=== PATIENT | male | born 1960 | race Caucasian/White ===

== ENCOUNTER 2017-01-24 14:09 | Emergency (ER) | payer OTHER ==
[~2017-01-24] VITALS: Ht 172.7 cm; Wt 108.0 kg
[~2017-01-24 14:09] MED LIST: ECOT81TA2 PO; LOSA50TA PO; VITA20002 PO
[2017-01-24 14:11] VITALS: BP 155/89; PULSE 75; RESP 16; TEMP 98.2; O2SAT 96
[2017-01-24] MEDS ORDERED: HYDR25TA5 PO (14:28)
[2017-01-24] MEDS ORDERED: ROBA750T PO (14:50)
[2017-01-24] MEDS ORDERED: IBUP800T23 PO (14:50)
--- NOTE | 2017-01-24 14:50 | PD ---
HPI Chief Complaint: Back/ Neck Pain or Injury Time Seen by Provider: 14:25 Travel History International Travel<30 days: No Contact w/Intl Traveler<30days: No Traveled to known affect area: No History of Present Illness HPI 56-year-old male with significant past medical history of hypertension presents to emergency department with chief complaint low back pain. He reports that at 12:00 this afternoon while at work he was bending down fasting a wheelchair onto the [employer] bus and felt a sharp pain in his low back upon standing. He describes the pain as sharp, spasming, worse with movement generalized to the low back. Severity 7 out of 10 with movement. Reports no pain while remaining still. He denies difficulty walking, incontinence, numbness or weakness in the lower extremities, saddle paresthesia. PFSH Past Medical History Narrative Medical Hypertension Diminished Hearing: No Hypertension: Yes Tetanus Vaccination: Unknown Social History Alcohol Use: Yes (RARELY) Tobacco Use: No Substance Use: No Allergies-Medications (Allergen,Severity, Reaction): Coded Allergies: Losartan (Verified Allergy, Severe, 01/24/17) Lisinopril (Verified Allergy, Intermediate, COUGH, DRY THROAT, 01/24/17) Norvasc (Verified Allergy, Unknown, 01/24/17) Reported Meds & Prescriptions Reported Meds & Active Scripts Active Robaxin (Methocarbamol) 750 Mg Tab 750 Mg PO TID Ibuprofen 800 Mg Tab 800 Mg PO Q8H PRN Reported Hydrochlorothiazide 25 Mg Tab 25 Mg PO DAILY Review of Systems Except as stated in HPI: all other systems reviewed are Neg Physical Exam Narrative GENERAL: [Alert, well-nourished, male. Appears uncomfortable with movement] SKIN: Focused skin assessment warm/dry. HEAD: Atraumatic. Normocephalic. EYES: Pupils equal and round. No scleral icterus. No injection or drainage. ENT: No nasal bleeding or discharge. Mucous membranes pink and moist. NECK: Trachea midline. No JVD. CARDIOVASCULAR: Regular rate and rhythm. No murmur appreciated. RESPIRATORY: No accessory muscle use. Clear to auscultation. Breath sounds equal bilaterally. GASTROINTESTINAL: Abdomen soft, non-tender, nondistended. Hepatic and splenic margins not palpable. MUSCULOSKELETAL: No midline spine tenderness. Tenderness over paraspinous muscle lumbar region. 2+ DTRs in lower extremities. Dorsi and plantar flexion intact. 5 out of 5 strength in lower extremities. Normal motor and sensation in lower extremities. No obvious deformities. No clubbing. No cyanosis. No edema. NEUROLOGICAL: Awake and alert. No obvious cranial nerve deficits. Motor grossly within normal limits. Normal speech. PSYCHIATRIC: Appropriate mood and affect; insight and judgment normal. Data Data Last Documented VS Vital Signs Date Time Temp Pulse Resp B/P Pulse Ox O2 Delivery O2 Flow Rate FiO2 01/24/17 14:11 98.2 75 16 155/89 96 MDM Medical Decision Making Medical Screen Exam Complete: Yes Emergency Medical Condition: Yes Medical Record Reviewed: Yes Differential Diagnosis Lumbar strain, lumbar fracture, herniated disc Narrative Course 56-year-old male presents to the emergency department with generalized low back pain and muscle spasming after bending over while at work today. He denies difficulty ambulating, incontinence, numbness or weakness in lower extremities, saddle paresthesia. On exam patient has no midline spine tenderness he does have paraspinous muscle tenderness in lumbar region. 2+ DTRs in lower extremities, dorsi and plantar flexion intact, 5 out of 5 strength in lower extremities. Physical exam is consistent with a lumbar strain. Patient will be given a shot of Toradol in the ED and discharged with NSAIDs and muscle relaxers. Instructed to follow-up with his primary care provider in 2 days for recheck. Return to emergency department should he develop new or worsening symptoms. Diagnosis Primary Impression: Lumbar strain Qualified Code: S39.012A - Lumbar strain, initial encounter Additional Impression: Low back pain Qualified Code: M54.5 - Acute low back pain without sciatica, unspecified back pain laterality Referrals: Primary Care Physician Patient Instructions: General Instructions, Low Back Strain (ED) Scripts Methocarbamol (Robaxin)750 Mg [id number] Mg PO TID #12 TAB Ref 0 Prov:Chuyita Jenkins 01/24/17 Ibuprofen 800 Mg [id number] Mg PO Q8H PRN (Pain/Inflammation) #20 TAB Ref 0 Prov:Chuyita Jenkins 01/24/17 Disposition: 01 DISCHARGE HOME Condition: Stable Chuyita Jenkins January 24, 2017 14:50
[2017-01-24] MEDS ORDERED: KETOROLAC TROMETHAMINE 60 MG/2 ML (IM) VIAL IM ONE (15:00)
== END 2017-01-24 15:10 | disposition home or self-care (01) ==
LOC: PHEFT 14:09
DX: S39.012A Strain of muscle, fascia and tendon of lower back, initial encounter (principal); M62.830 Muscle spasm of back; I10 Essential (primary) hypertension; X50.1XXA Overexertion from prolonged static or awkward postures, initial encounter; Y93.89 Activity, other specified; Y92.811 Bus as the place of occurrence of the external cause; Y99.0 Civilian activity done for income or pay
CPT/HCPCS: 96372; 99284; J1885

== ENCOUNTER 2017-01-28 09:37 | Emergency (ER) | payer OTHER ==
[~2017-01-28] VITALS: Ht 172.7 cm; Wt 106.6 kg
[~2017-01-28 09:37] MED LIST changes: -ECOT81TA2 PO; +HYDR25TA5 PO; +IBUP800T23 PO; -LOSA50TA PO; +ROBA750T PO; -VITA20002 PO
[2017-01-28 09:49] VITALS: BP 138/88; PULSE 73; RESP 16; TEMP 98.2; O2SAT 99
--- NOTE | 2017-01-28 11:10 | PD ---
HPI Chief Complaint: Musculoskeletal Complaint Time Seen by Provider: 11:05 Travel History International Travel<30 days: No Contact w/Intl Traveler<30days: No Traveled to known affect area: No History of Present Illness HPI 56 year-old male presents to the emergency room for evaluation of low back strain. Patient pulled his back 4 days ago while working. He came to the emergency room for evaluation and was diagnosed with muscle strain. Patient was released to come back to work today but states he is still in too much pain. He came back to the emergency room for follow-up. While in the emergency room, he called his supervisor [employer] and was told that he is in the wrong location. He has received the extension to call his job for follow-up care. History Past Medical Histgory Medical History: Denies Significant Hx Past Surgical History Surgical History: No Previous Surgery Social History Alcohol Use: Yes (RARELY) Tobacco Use: No Allergies-Medications (Allergen,Severity, Reaction): Coded Allergies: Losartan (Verified Allergy, Severe, 01/28/17) Lisinopril (Verified Allergy, Intermediate, COUGH, DRY THROAT, 01/28/17) Norvasc (Verified Allergy, Unknown, 01/28/17) Reported Meds & Prescriptions Reported Meds & Active Scripts Active Robaxin (Methocarbamol) 750 Mg Tab 750 Mg PO TID Ibuprofen 800 Mg Tab 800 Mg PO Q8H PRN Reported Hydrochlorothiazide 25 Mg Tab 25 Mg PO DAILY Review of Systems Except as stated in HPI: all other systems reviewed are Neg Physical Exam Narrative GENERAL: Well-nourished, well-developed male in no acute distress. Afebrile. Ambulatory. SKIN: Focused skin assessment warm/dry. HEAD: Normocephalic. EYES: No scleral icterus. No injection or drainage. NECK: Supple, trachea midline. No JVD or lymphadenopathy. CARDIOVASCULAR: Regular rate and rhythm without murmurs, gallops, or rubs. RESPIRATORY: Breath sounds equal bilaterally. No accessory muscle use. BACK: No CVA tenderness. No rash. No point tenderness on palpation of the spine. Tenderness palpation of the lumbar paraspinous musculature. Data Data Last Documented VS Vital Signs Date Time Temp Pulse Resp B/P Pulse Ox O2 Delivery O2 Flow Rate FiO2 01/28/17 09:49 98.2 73 16 138/88 99 MDM Medical Screen Exam Complete: Yes Emergency Medical Condition: No Differential Diagnosis Lumbar strain Narrative Course 56-year-old male presents to the emergency room for follow-up after being diagnosed with lumbar strain 4 days ago. He is ambulatory. No focal neurological deficits. Tenderness to palpation of the bilateral lumbar paraspinous musculature. Patient was injured on the job and accidentally came back to the emergency room for follow-up care but states he meant to follow-up with the physician provided by his work. While in the emergency room he got the extension for proper follow-up care and states he would like to leave. There are no urgent or emergent medical conditions at this time. A medical screening exam was performed: At the time of evaluation the presenting medical condition was determined not to be of an emergent nature. The patient was given the option of receiving additional care, but declined. Patient was given options for additional community resources from which to obtain care. The Patient Has Been advised to seek medical attention for their presenting complaint. The patient has been advised to return to the ER at any time if an emergent condition develops. Primary Impression: Encounter for medical screening examination Disposition: 01 DISCHARGE HOME Condition: Stable Angeli Mccallum January 28, 2017 11:09
== END 2017-01-28 11:10 | disposition left against medical advice (07) ==
LOC: PHED 09:37 → PHEFT 11:10
DX: S39.012A Strain of muscle, fascia and tendon of lower back, initial encounter (principal); X50.9XXA Other and unspecified overexertion or strenuous movements or postures, initial encounter
CPT/HCPCS: 99281

== ENCOUNTER 2017-02-22 09:52 | Observation (INO) | payer OTHER ==
[~2017-02-22] VITALS: Ht 172.7 cm; Wt 102.1 kg
[2017-02-22 09:55] VITALS: BP 159/88; PULSE 72; RESP 17; TEMP 98.7; O2SAT 97
[2017-02-22] MEDS ORDERED: ASPIRIN 325 MG TAB PO ONE (10:15)
[2017-02-22] MEDS ORDERED: SODIUM CHLORIDE 0.9% FLUSH 10 ML FLUSH IVF PRN (10:15)
[2017-02-22 10:32] LABS: AUTOMATED NEUTROPHIL # 6.7 TH/MM3 (1.8-7.7); BASOPHIL # 0.1 TH/MM3 (0-0.2); BASOPHIL % 0.6 % (0.0-2.0); EOSINOPHIL # 0.1 TH/MM3 (0-0.4); EOSINOPHIL % 0.7 % (0.0-4.0); HEMATOCRIT 46.6 % (39.0-51.0); HEMO FLAGS DIFF FINAL; LYMPH % 22.5 % (9.0-44.0); LYMPHOCYTE # 2.1 TH/MM3 (1.0-4.8); MEAN CELL VOLUME 78.2 FL (80.0-100.0); MEAN CORPUSCULAR HEMOGLOBIN 25.4 PG (27.0-34.0); MEAN CORPUSCULAR HGB CONC 32.4 % (32.0-36.0); MONO % 6.2 % (0.0-8.0); PLATELET COUNT 241 TH/MM3 (150-450); RED BLOOD COUNT 5.96 MIL/MM3 (4.50-5.90); RED CELL DISTRIBUTION WIDTH 13.4 % (11.6-17.2); WHITE BLOOD COUNT 9.6 TH/MM3 (4.0-11.0)
[2017-02-22 10:37] VITALS: BP_SYST 129; BP_SYST 154; BP_DIAS 78; BP_DIAS 86; PULSE 63
--- NOTE | 2017-02-22 10:37 | RADRPT ---
EXAM DATE/TIME: 02/22/2017 10:31 [facility] COMPARISON: No previous studies available for comparison. INDICATIONS : Chest pain today MEDICAL HISTORY : Hypertension. SURGICAL HISTORY : None. ENCOUNTER: Initial ACUITY: 1 day PAIN SCORE: 9/10 LOCATION: Bilateral chest FINDINGS: A single view of the chest demonstrates the lungs to be symmetrically aerated without evidence of mas s, infiltrate or effusion. The cardiomediastinal contours are unremarkable. Osseous structures are intact. CONCLUSION: Normal examination for a patient of this age. Husam Blount MD on February 22, 2017 at 10:35 Board Certified Radiologist. This report was verified electronically.
[2017-02-22 10:39] LABS: CHLORIDE 103 MEQ/L (98-107); POTASSIUM 3.4 MEQ/L (3.5-5.1); SODIUM (NA) 142 MEQ/L (136-145)
[2017-02-22 10:43] LABS: ANION GAP 8 MEQ/L (5-15); APTT (PATIENT) 29.3 SEC (24.3-30.1); BICARBONATE 30.6 MEQ/L (21.0-32.0); INTERNATIONAL NORMALIZED RATIO 0.9 RATIO; MAGNESIUM 2.2 MG/DL (1.5-2.5); PROTHROMBIN TIME - PATIENT 10.4 SEC (9.8-11.6)
[2017-02-22 10:44] LABS: BLOOD UREA NITROGEN 19 MG/DL (7-18)
[2017-02-22 10:46] LABS: ALT (GPT) 44 U/L (12-78); AST (GOT) 18 U/L (15-37); GLOMERULAR FILTRATION RATE 57 ML/MIN (>89)
[2017-02-22 10:48] LABS: TOTAL BILIRUBIN ADULT 0.7 MG/DL (0.2-1.0)
[2017-02-22 10:49] LABS: ALKALINE PHOSPHATASE 46 U/L (45-117); CREATINE KINASE 103 U/L (39-308)
--- NOTE | 2017-02-22 10:49 | PD ---
HPI Chief Complaint: Chest Pain Time Seen by Provider: 09:53 Travel History International Travel<30 days: No Contact w/Intl Traveler<30days: No Traveled to known affect area: No History of Present Illness HPI 56 yo M complains of chest tightness for a few hours. Pain started in the back in region of lower thorax. Pain then migrated to chest with a tightness quality as bad as 9/10 for a few minutes. Pain resolved prior to evaluation in the ER, which at time of interview pt quantified at 1/10. No dyspnea. He woke up early this morning and went to the [employer] market however felt generally weak and fatigued while walking around and returned home. Lately he has been inactive due to an injury sustained at work. [facility] Past Medical History Cardiovascular Problems: Yes (HTN) Diminished Hearing: No Hypertension: Yes Immunizations Current: Yes Past Surgical History Surgical History: No Previous Surgery Social History Alcohol Use: Yes (RARELY) Tobacco Use: No (FORMER) Substance Use: No Allergies-Medications (Allergen,Severity, Reaction): Coded Allergies: Losartan (Verified Allergy, Severe, 02/22/17) Lisinopril (Verified Allergy, Intermediate, COUGH, DRY THROAT, 02/22/17) Norvasc (Verified Allergy, Unknown, 02/22/17) Reported Meds & Prescriptions Reported Meds & Active Scripts Active Ibuprofen 800 Mg Tab 800 Mg PO Q8H PRN Reported Hydrochlorothiazide 25 Mg Tab 25 Mg PO DAILY Review of Systems Except as stated in HPI: all other systems reviewed are Neg Physical Exam Narrative GENERAL: 56 yo M, pleasant, mild distress SKIN: Warm and dry. HEAD: Atraumatic. Normocephalic. EYES: Pupils equal and round. No scleral icterus. No injection or drainage. ENT: No nasal bleeding or discharge. Mucous membranes pink and moist. NECK: Trachea midline. No JVD. CARDIOVASCULAR: Regular rate and rhythm. RESPIRATORY: No accessory muscle use. Clear to auscultation. Breath sounds equal bilaterally. GASTROINTESTINAL: Abdomen soft, non-tender, nondistended. Hepatic and splenic margins not palpable. MUSCULOSKELETAL: Extremities without clubbing, cyanosis, or edema. No obvious deformities. NEUROLOGICAL: Awake and alert. No obvious cranial nerve deficits. Motor grossly within normal limits. Five out of 5 muscle strength in the arms and legs. Normal speech. PSYCHIATRIC: Appropriate mood and affect; insight and judgment normal. Data Data Last Documented VS Vital Signs Date Time Temp Pulse Resp B/P Pulse Ox O2 Delivery O2 Flow Rate FiO2 02/22/17 10:37 63 154/86 129/78 02/22/17 10:00 17 97 Room Air 02/22/17 09:55 98.7 VS reviewed Orders Electrocardiogram (02/22/17 10:01) Ckmb (Isoenzyme) Profile (02/22/17 10:01) Complete Blood Count With Diff (02/22/17 10:01) Comprehensive Metabolic Panel (02/22/17 10:01) Magnesium (Mg) (02/22/17 10:01) Prothrombin Time / Inr (Pt) (02/22/17 10:01) Act Partial Throm Time (Ptt) (02/22/17 10:01) Troponin I (02/22/17 10:01) Lipase (02/22/17 10:01) Chest, Single Ap (02/22/17 10:01) Ecg Monitoring (02/22/17 10:01) Bilateral Bp Monitoring (02/22/17 10:01) Iv Access Insert/Monitor (02/22/17 10:01) Oximetry (02/22/17 10:01) Oxygen Administration (02/22/17 10:01) Aspirin (Aspirin) (02/22/17 10:15) Sodium Chloride 0.9% Flush (Ns Flush) (02/22/17 10:15) CKMB (02/22/17 10:20) CKMB% (02/22/17 10:20) Admit Order (Ed Use Only) (02/22/17 11:31) Labs Laboratory Tests Test 02/22/17 10:20 White Blood Count 9.6 TH/MM3 Red Blood Count 5.96 MIL/MM3 Hemoglobin 15.1 GM/DL Hematocrit 46.6 % Mean Corpuscular Volume 78.2 FL Mean Corpuscular Hemoglobin 25.4 PG Mean Corpuscular Hemoglobin 32.4 % Concent Red Cell Distribution Width 13.4 % Platelet Count 241 TH/MM3 Mean Platelet Volume 8.6 FL Neutrophils (%) (Auto) 70.0 % Lymphocytes (%) (Auto) 22.5 % Monocytes (%) (Auto) 6.2 % Eosinophils (%) (Auto) 0.7 % Basophils (%) (Auto) 0.6 % Neutrophils # (Auto) 6.7 TH/MM3 Lymphocytes # (Auto) 2.1 TH/MM3 Monocytes # (Auto) 0.6 TH/MM3 Eosinophils # (Auto) 0.1 TH/MM3 Basophils # (Auto) 0.1 TH/MM3 CBC Comment DIFF FINAL Differential Comment Prothrombin Time 10.4 SEC Prothromb Time International 0.9 RATIO Ratio Activated Partial 29.3 SEC Thromboplast Time Sodium Level 142 MEQ/L Potassium Level 3.4 MEQ/L Chloride Level 103 MEQ/L Carbon Dioxide Level 30.6 MEQ/L Anion Gap 8 MEQ/L Blood Urea Nitrogen 19 MG/DL Creatinine 1.30 MG/DL Estimat Glomerular Filtration 57 ML/MIN Rate Random Glucose 98 MG/DL Calcium Level 9.0 MG/DL Magnesium Level 2.2 MG/DL Total Bilirubin 0.7 MG/DL Aspartate Amino Transf 18 U/L (AST/SGOT) Alanine Aminotransferase 44 U/L (ALT/SGPT) Alkaline Phosphatase 46 U/L Total Creatine Kinase 103 U/L Creatine Kinase MB LESS THAN 0.5 NG/ML Troponin I LESS THAN 0.02 NG/ML Total Protein 7.7 GM/DL Albumin 3.8 GM/DL Lipase 177 U/L [facility] Medical Decision Making Medical Screen Exam Complete: Yes Emergency Medical Condition: Yes Medical Record Reviewed: Yes Differential Diagnosis NSTEMI, unstable angina, coronary vasospasm, PE, PTX, aortic dissection, pericarditis, myocarditis, endocarditis, PNA, esophageal disease, aneurysm, musculoskeletal etiologies, anxiety, cocaine/sympathomimetic abuse Narrative Course CBC & BMP Diagram 02/22/17 10:20 LFTs normal Lipase normal Tn < 0.02 EKG sinus rate 68 normal axis/intervals, TW flattening in III and aVF Last Impressions Chest X-Ray 02/22/17 1001 Signed Impressions: Service Date/Time: Wednesday, February 22, 2017 10:31 - CONCLUSION: Normal examination for a patient of this age. Husam Blount MD [facility] protocol d/w pt who is agreeable. Plan discussed with Dr Ospina. Diagnosis Primary Impression: Chest pain Qualified Code: R07.9 - Chest pain, unspecified type Admitting Information Admitting Physician Requests: Observation Champ Farooq MD Feb 22, 2017 10:49
[2017-02-22 11:01] LABS: CKMB LESS THAN 0.5 NG/ML (0.5-3.6)
[2017-02-22 11:05] VITALS: BP 140/80; PULSE 55; RESP 16; O2SAT 97
[2017-02-22 12:05] VITALS: BP 151/81; PULSE 56; RESP 16; O2SAT 98
[2017-02-22] MEDS ORDERED: ACETAMINOPHEN/HYDROcodone 325 MG/7.5 MG TAB PO PRN (12:15)
[2017-02-22] MEDS ORDERED: ALPRAZolam 0.25 MG TAB PO PRN (12:15)
[2017-02-22] MEDS ORDERED: ACETAMINOPHEN 500 MG CPLT PO PRN (12:15)
[2017-02-22] MEDS ORDERED: MORPHINE SULFATE 4 MG/ML INJ IV PRN (12:15)
[2017-02-22] MEDS ORDERED: SODIUM CHLORIDE 0.9% FLUSH 10 ML FLUSH IV FLUSH PRN (12:15)
[2017-02-22] MEDS ORDERED: ONDANSETRON HCL 4 MG/2 ML VIAL IV PRN (12:15)
--- NOTE | 2017-02-22 12:19 | HHI.HP ---
[facility] Service [facility] Primary Care Physician Adrien Jeffries MD Admission Diagnosis Chest Pain Diagnoses: (1) Chest pain (2) Hypertension Chief Complaint: Chest pain Travel History International Travel<30 Days: No Contact w/Intl Traveler <30 Da: No Traveled to Known Affected Are: No History of Present Illness 56 Year-old male with a history of hypertension presented to the ED for evaluation of acute onset of substernal chest pain . Patient states, around 09:00-09:30AM this morning after he has returned from the [employer], he first experienced back pain in his lower thorax while seating on the toilet bowl which migrated to his chest which lasted 15-20 minutes and described as dull and radiated 9/10 in intensity without any associated diaphoresis, nausea of vomiting. He also reported episode of fatigue this morning while at he was walking at the [employer] however without any episode of chest pain. Patient had an exercise stress test 7 years ago and was told it might have been abnormal will for which he was started on baby aspirin and statin, which he continued for over a year however discontinued secondary to side effects. During my exam, patient denies any chest pain Review of Systems Except as stated in HPI: all other systems reviewed are Neg Past Family Social History Past Medical History Hypertension Hyperlipidemia Past Surgical History No previous surgery Reported Medications Hydrochlorothiazide Allergies: Coded Allergies: Losartan (Verified Allergy, Severe, 02/22/17) Lisinopril (Verified Allergy, Intermediate, COUGH, DRY THROAT, 02/22/17) Norvasc (Verified Allergy, Unknown, 02/22/17) Family History Father from heart attack Mother had CAD, AICD placed Social History Alcohol Use: Yes (RARELY) Tobacco Use: No (FORMER) Substance Use: No Physical Exam Vital Signs Vital Signs Date Time Temp Pulse Resp B/P Pulse Ox O2 Delivery O2 Flow Rate FiO2 02/22/17 10:37 63 154/86 129/78 02/22/17 10:00 74 17 97 Room Air 02/22/17 09:55 17 97 Room Air 02/22/17 09:55 98.7 72 17 159/88 97 02/22/17 09:55 97 Room Air Physical Exam GENERAL: This is a well-nourished, well-developed patient, in no apparent distress. SKIN: No rashes, ecchymoses or lesions. Cool and dry. HEAD: Atraumatic. Normocephalic. No temporal or scalp tenderness. EYES: Pupils equal round and reactive. Extraocular motions intact. No scleral icterus. No injection or drainage. ENT: Nose without bleeding, purulent drainage or septal hematoma. Throat without erythema, tonsillar hypertrophy or exudate. Uvula midline. Airway patent. NECK: Trachea midline. No JVD or lymphadenopathy. Supple, nontender, no meningeal signs. CARDIOVASCULAR: Regular rate and rhythm without murmurs, gallops, or rubs. RESPIRATORY: Clear to auscultation. Breath sounds equal bilaterally. No wheezes , rales, or rhonchi. GASTROINTESTINAL: Abdomen soft, non-tender, nondistended. No hepato-splenomegaly , or palpable masses. No guarding. MUSCULOSKELETAL: Extremities without clubbing, cyanosis, or edema. No joint tenderness, effusion, or edema noted. No calf tenderness. Negative Homans sign bilaterally. NEUROLOGICAL: Awake and alert. Cranial nerves II through XII intact. Motor and sensory grossly within normal limits. Five out of 5 muscle strength in all muscle groups. Normal speech. Laboratory Laboratory Tests Test 02/22/17 10:20 White Blood Count 9.6 Red Blood Count 5.96 Hemoglobin 15.1 Hematocrit 46.6 Mean Corpuscular Volume 78.2 Mean Corpuscular Hemoglobin 25.4 Mean Corpuscular Hemoglobin 32.4 Concent Red Cell Distribution Width 13.4 Platelet Count 241 Mean Platelet Volume 8.6 Neutrophils (%) (Auto) 70.0 Lymphocytes (%) (Auto) 22.5 Monocytes (%) (Auto) 6.2 Eosinophils (%) (Auto) 0.7 Basophils (%) (Auto) 0.6 Neutrophils # (Auto) 6.7 Lymphocytes # (Auto) 2.1 Monocytes # (Auto) 0.6 Eosinophils # (Auto) 0.1 Basophils # (Auto) 0.1 CBC Comment DIFF FINAL Differential Comment Prothrombin Time 10.4 Prothromb Time International 0.9 Ratio Activated Partial 29.3 Thromboplast Time Sodium Level 142 Potassium Level 3.4 Chloride Level 103 Carbon Dioxide Level 30.6 Anion Gap 8 Blood Urea Nitrogen 19 Creatinine 1.30 Estimat Glomerular Filtration 57 Rate Random Glucose 98 Calcium Level 9.0 Magnesium Level 2.2 Total Bilirubin 0.7 Aspartate Amino Transf 18 (AST/SGOT) Alanine Aminotransferase 44 (ALT/SGPT) Alkaline Phosphatase 46 Total Creatine Kinase 103 Creatine Kinase MB LESS THAN 0.5 Troponin I LESS THAN 0.02 Total Protein 7.7 Albumin 3.8 Lipase 177 Result Diagram: 02/22/17 1020 02/22/17 1020 Imaging Last Impressions Chest X-Ray 02/22/17 1001 Signed Impressions: Service Date/Time: Wednesday, February 22, 2017 10:31 - CONCLUSION: Normal examination for a patient of this age. Husam Blount MD Assessment and Plan Problem List: (1) Chest pain ICD Code: R07.9 Status: Acute (2) Hypertension ICD Code: I10 Status: Acute Assessment and Plan 56-year-old man with Atypical chest pain Admit patient in chest pain center ACS rule out per protocol with serial cardiac enzyme and EKGs Start aspirin/beta sary/Nitropaste/Lovenox/statin pending lipid profile/ morphine when necessary Nuclear stress test and if abnormal will consult cardiology Hypertension Labile BP Resume outpatient medication and add Coreg twice a day History of hyperlipidemia Check lipid profile and resume statin accordingly Hypokalemia Replace electrolyte and monitor DVT prophylaxis Lovenox Code Status Full code Discussed Condition With Patient, daughter, ED physician Problem Qualifiers (1) Chest pain: Qualified Code: R07.9 - Chest pain, unspecified type Jose Rafael Ospina MD Feb 22, 2017 12:19
[2017-02-22 13:00] VITALS: BP 138/84; PULSE 57; RESP 20; TEMP 98; O2SAT 96
[2017-02-22] MEDS ORDERED: ENOXAPARIN SODIUM 40 MG/0.4 ML SYRINGE SQ SCH (13:00)
[2017-02-22] MEDS ORDERED: NITROGLYCERIN 2% OINT 1 GM PACKET TOP SCH (18:00)
[2017-02-22] MEDS ORDERED: CARVEDILOL 3.125 MG TAB PO SCH (21:00)
[2017-02-22] MEDS ORDERED: SODIUM CHLORIDE 0.9% FLUSH 10 ML FLUSH IV FLUSH SCH (21:00)
[2017-02-23] MEDS ORDERED: PANTOPRAZOLE SOD 40 MG DELAYED RELEASE TAB PO SCH (09:00)
[2017-02-23] MEDS ORDERED: ASPIRIN 325 MG TAB PO SCH (09:00)
--- NOTE | 2017-02-24 08:45 | EKG ---
Date Performed: 02/22/2017 Time Performed: 09:54:07 PTAGE: 56 years EKG: Sinus rhythm WITH SINUS ARRHYTHMIA NORMAL ECG INTERPRETATION BASED ON A DEFAULT AGE OF 40 YEARS NO PREVIOUS TRACING DOCTOR: Concetta Kent Interpretating Date/Time 02/24/2017 08:42:06
== END 2017-02-22 14:26 | disposition left against medical advice (07) ==
LOC: PHED 09:52 → UNDOADMOB 11:48 → PHEDA 11:48 → PHEDH 11:48 → PH3A 12:42 → PHEDH 12:42 → UNDODISOB 14:26
PROVIDERS: ADMIT Hospitalist; ATTEND Hospitalist
DX: R07.89 Other chest pain (principal); I10 Essential (primary) hypertension; E78.5 Hyperlipidemia, unspecified; E87.6 Hypokalemia
CPT/HCPCS: 71010; 80053; 82550; 82552; 83690; 83735; 83880; 84484; 85025; 85610; 85730; 93005; 99285; G0378